=== PATIENT | male | born 1950 | race Caucasian/White ===

== ENCOUNTER 2017-01-17 00:08 | Emergency (ER) | payer OTHER ==
[~2017-01-17] VITALS: Ht 180.3 cm; Wt 92.4 kg
[2017-01-17 00:13] VITALS: TEMP 36.4; Ht 180.3 cm; Wt 92.4 kg
[2017-01-17] MEDS ORDERED: HYDROmorphone INJ 1 MG/ML SYR IV STA (00:40)
--- NOTE | 2017-01-17 00:44 | EMERGENCY ROOM VISIT NOTE ---
History Report prepared by Giovani: Maurilio Short Under the Supervision of: Dr. Jaydon Patel M.D. First contact with patient: 00:32 Chief Complaint: URINARY SYMPTOMS Stated Complaint: URINATING BLOOD,TISSUE History of Present Illness The patient is a 66 year old male who presents to the Emergency Room with complaints of abnormal urinary symptoms that began 2 hours ago. He rates his current pain an 8/10 in severity. He states that at this time, he began urinating a significant amount of blood and clots. He is also experiencing a pressure-like burning sensation in his pubic region. He feels better when he is standing, and it is worse when he is sitting down. He denies any fevers or recent falls. He has a history of bilateral hernias and a green light prostate surgery. He denies any previous kidney or bladder issues. He took some Aleve earlier today, that did not help his pain. Source of History: patient Onset: 2 hours ago Position: other () Symptom Intensity: 8/10 Quality: pressure, burning Timing: constant Modifying Factors (Worsening): rest Modifying Factors (Relieving): other (Standing) Associated Symptoms: + abdominal pain, + urinary symptoms, No fevers Review of Systems See HPI for pertinent positives & negatives. A total of 10 systems reviewed and were otherwise negative. Past Medical & Surgical Surgical Problems: (1) Bilateral inguinal hernia Family History Omitted secondary to age. Social History Smoking Status: Never Smoker Smokeless Tobacco Use: No Alcohol Use: occasionally Drug Use: none Marital Status: Housing Status: lives with significant other Occupation Status: retired Current/Historical Medications Scheduled Sulfa/Trimethoprim (Bactrim Ds 800MG/160MG), 1 TAB PO BID Physical Exam Vital Signs Date Time Temp Pulse Resp B/P Pulse Ox O2 Delivery O2 Flow Rate FiO2 01/17/17 05:20 100 18 164/95 98 Room Air 01/17/17 02:10 86 16 144/94 96 Room Air 01/17/17 00:13 36.4 98 18 167/102 96 Room Air Physical Exam GENERAL: Patient is uncomfortable appearing and in moderate acute distress. HEENT: No acute trauma, normocephalic atraumatic, mucous membranes moist, no nasal congestion, no scleral icterus. NECK: No stridor, no adenopathy, no meningismus, trachea is midline. LUNGS: No dyspnea. Clear to auscultation and equal bilaterally. No wheeze, no rhonchi. HEART: Regular rate and rhythm. No murmurs, rubs, gallops appreciated. ABDOMEN: Soft, full and tender bladder, bowel sounds positive, no masses appreciated, no peritonitis. BACK: No midline tenderness, no CVA tenderness EXTREMITIES: Normal motion all extremities, no cyanosis, no edema. NEUROLOGIC: Alert and oriented, no acute motor or sensory deficits, no focal weakness, cranial nerves grossly intact. SKIN: No rash, no jaundice, no diaphoresis. Medical Decision & Procedures Laboratory Results 01/17/17 01:09 Red Blood Count 5.26, Mean Corpuscular Volume 82.9, Mean Corpuscular Hemoglobin 29.5, Mean Corpuscular Hemoglobin Concent 35.6, Mean Platelet Volume 9.2, Neutrophils (%) (Auto) 55.7, Lymphocytes (%) (Auto) 34.0, Monocytes (%) (Auto) 5.9, Eosinophils (%) (Auto) 3.8, Basophils (%) (Auto) 0.3, Neutrophils # (Auto) 3.40, Lymphocytes # (Auto) 2.08, Monocytes # (Auto) 0.36, Eosinophils # (Auto) 0.23, Basophils # (Auto) 0.02 01/17/17 01:09 Test 01/17/17 01:09 01/17/17 02:10 White Blood Count 6.11 K/uL (4.8-10.8) Red Blood Count 5.26 M/uL (4.7-6.1) Hemoglobin 15.5 g/dL (14.0-18.0) Hematocrit 43.6 % (42-52) Mean Corpuscular Volume 82.9 fL (80-100) Mean Corpuscular Hemoglobin 29.5 pg (25-34) Mean Corpuscular Hemoglobin Concent 35.6 g/dl (32-36) Platelet Count 237 K/uL (130-400) Mean Platelet Volume 9.2 fL (7.4-10.4) Neutrophils (%) (Auto) 55.7 % Lymphocytes (%) (Auto) 34.0 % Monocytes (%) (Auto) 5.9 % Eosinophils (%) (Auto) 3.8 % Basophils (%) (Auto) 0.3 % Neutrophils # (Auto) 3.40 K/uL (1.4-6.5) Lymphocytes # (Auto) 2.08 K/uL (1.2-3.4) Monocytes # (Auto) 0.36 K/uL (0.11-0.59) Eosinophils # (Auto) 0.23 K/uL (0-0.5) Basophils # (Auto) 0.02 K/uL (0-0.2) RDW Standard Deviation 39.3 fL (36.4-46.3) RDW Coefficient of Variation 13.1 % (11.5-14.5) Immature Granulocyte % (Auto) 0.3 % Immature Granulocyte # (Auto) 0.02 K/uL (0.00-0.02) Prothrombin Time 10.7 SECONDS (9.0-12.0) Prothromb Time International Ratio 1.0 (0.9-1.1) Anion Gap 9.0 mmol/L (3-11) Est Creatinine Clear Calc Drug Dose 70.3 ml/min Estimated GFR () 72.6 Estimated GFR (Non- 62.6 BUN/Creatinine Ratio 12.0 (10-20) Calcium Level 8.9 mg/dl (8.5-10.1) Urine Color RED Urine Appearance CLOUDY (CLEAR) Urine pH (4.5-7.5) Urine Specific [place] 1.008 (1.000-1.030) Urine Protein POS (NEG) Urine Glucose (UA) (NEG) Urine Ketones (NEG) Urine Occult Blood (NEG) Urine Nitrite (NEG) Urine Bilirubin (NEG) Urine Urobilinogen (NEG) Urine Leukocyte Esterase (NEG) Urine RBC >30 /hpf (0-4) Urine WBC >30 /hpf (0-5) Urine Epithelial Cells >30 /lpf (0-5) Urine Bacteria 1+ (NEG) Laboratory results as reviewed by me. Medications Administered Medications (Trade) Dose Ordered Sig/Jak Route Start Time Stop Time Status Last Admin Dose Admin Hydromorphone HCl (Dilaudid Inj) 1 mg NOW STAT IV 01/17/17 00:40 01/17/17 00:42 DC 01/17/17 01:14 1 MG Trimethoprim/ Sulfamethoxazole (Septra Ds 800/ 160MG Tab) 1 tab NOW STAT PO 01/17/17 04:15 01/17/17 04:16 DC 01/17/17 05:18 1 TAB Trimethoprim/ Sulfamethoxazole (Sulfameth/ Trimeth Ds 800/ 160MG Home Pack) 1 homepack UD ONCE PO 01/17/17 04:15 01/17/17 04:16 DC 01/17/17 05:45 1 HOMEPACK Oxycodone HCl (Roxicodone Immediate Rel 5MG Home Pack) 2 homepack UD ONCE PO 01/17/17 05:45 01/17/17 05:46 DC 01/17/17 05:45 2 HOMEPACK ED Course 0032: The patient was evaluated in room B6. A complete history and physical exam was performed. 0037: I performed a bedside ultrasound of the bladder at this time. It showed a large amount of urine in the patient's bladder with a moderately sized clot noted in the posterior bladder. 0040: Ordered Dilaudid Inj 1 mg IV 0116: The patient is feeling better with the pain medications. We will place a Brannon catheter in him. 0145: I was informed that the nurses had multiple attempts of trying to clear the clot with the Brannon, however the catheters kept clogging. They then tried a 3 way Brannon with irrigation. They were able to remove about 1L of bloody fluid prior to it clogging again. The patient states that his pain has improved, but he is still uncomfortable. 0343: The patient's urine has cleared. It is now pinkish in color. He is feeling better. 0408: At this time, I spoke with Dr. Hira Martinez - Urology. He recommended leaving a Brannon catheter in place for the patient. 0415: Ordered Trimethoprim/Sulfamethoxazole 1 homepack PO, Trimethoprim/ Sulfamethoxazole 1 tab PO 0430: Reevaluated the patient. Discussed results and discharge instructions: He verbalized understanding and agreement. The patient is ready for discharge. Medical Decision 66 yr old male arrives with complaint of hematuria. Bedside US on arrival with large urinary retention as well as large clot noted in posterior bladder. Irrigated extensively over several hours until clot broken up. Brannon placed for comfort and required some irrigation with periodic clotting. He will need to be seen by urologist, though is from out of town and has his own urologist at home 5 hours ago. Will give him equipment for flushing brannon as it has clotted up some while here. Will treat with Bactrim DS BID along with to go Oxy IR (discussed no driving, etc). 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 Reviewed symptoms requiring RTED. Stable at discharge. Impression Primary Impression: Acute urinary retention Additional Impressions: Hematuria Bacteria in urine Scribe Attestation The scribe's documentation has been prepared under my direction and personally reviewed by me in its entirety. I confirm that the note above accurately reflects all work, treatment, procedures, and medical decision making performed by me. Departure Information Dispostion Home / Self-Care Prescriptions Sulfa/Trimethoprim (Bactrim Ds 800MG/160MG) Tab 1 TAB PO BID, #20 TAB Prov: Jaydon Patel M.D. 01/17/17 Referrals No Doctor, Assigned (PCP) Forms HOME CARE DOCUMENTATION FORM, IMPORTANT VISIT INFORMATION Patient Instructions ED Catheter Care Brannon, Hematuria Poss Causes, My [facility] Additional Instructions Please follow up with your Urologist as soon as possible. Return if worsening pain, fevers, vomiting, no urine output or other concerning symptoms. We are always here to help. Problem Qualifiers
[2017-01-17 01:26] LABS: BASO % 0.3 %; BASO ABS # 0.02 K/uL (0-0.2); COMPLETE YES; EOS % 3.8 %; HEMATOCRIT 43.6 % (42-52); IG% 0.3 %; LYMPH ABS # 2.08 K/uL (1.2-3.4); MEAN CELL VOLUME 82.9 fL (80-100); MEAN CORPUSCULAR HEMOGLOBIN 29.5 pg (25-34); MEAN CORPUSCULAR HGB CONC 35.6 g/dl (32-36); MEAN PLATELET VOLUME 9.2 fL (7.4-10.4); MONO % 5.9 %; NEUT % 55.7 %; PLATELET COUNT 237 K/uL (130-400); RED BLOOD COUNT 5.26 M/uL (4.7-6.1); WHITE BLOOD COUNT 6.11 K/uL (4.8-10.8)
[2017-01-17 01:36] LABS: PROTHROMBIN TIME (PATIENT) 10.7 SECONDS (9.0-12.0)
[2017-01-17 01:46] LABS: CALCIUM 8.9 mg/dl (8.5-10.1); CREATININE 1.2 mg/dl (0.60-1.40); POTASSIUM 3.8 mmol/L (3.5-5.1)
[2017-01-17 02:39] LABS: MANUAL MICROSCOPIC REQUIRED? YES; REVIEW REQ? NO; URINE APPEARANCE CLOUDY (CLEAR); URINE COLOR RED
[2017-01-17 02:43] LABS: SULFASALICYLIC ACID POS (NEG); URINE SPECIFIC GRAVITY 1.008 (1.000-1.030)
[2017-01-17 02:45] LABS: URINE RBC >30 /hpf (0-4)
[2017-01-17 02:47] LABS: URINE WBC >30 /hpf (0-5)
[2017-01-17 02:50] LABS: URINE BACTERIA 1+ (NEG); ZZURINE CULT IF INDIC CATH YES
[2017-01-17] MEDS ORDERED: SULFAMETHOXAZOLE/TRIMETHOPRIM DS 800/160MG TAB PO STA (04:15)
[2017-01-17] MEDS ORDERED: SEPTRA DS HOME PACK 1 EA VIAL PO ONE (04:15)
[2017-01-17] MEDS ORDERED: SULF800T23 PO (04:37)
[2017-01-17 05:20] VITALS: BP 164/95; PULSE 100; O2SAT 98
[2017-01-17] MEDS ORDERED: OXYCODONE IR HOME PACK PO ONE (05:45)
== END 2017-01-17 05:51 | disposition home or self-care (01) ==
LOC: C.EDB 00:10
DX: R33.9 Retention of urine, unspecified (principal); R31.9 Hematuria, unspecified; R82.71 Bacteriuria; K40.20 Bilateral inguinal hernia, without obstruction or gangrene, not specified as recurrent